=== PATIENT | female | born 1935 | race Caucasian/White ===

== ENCOUNTER 2018-01-04 14:01 | Inpatient (IN) | payer MEDICARE ==
[~2018-01-04] VITALS: Ht 170.2 cm; Wt 76.6 kg
[2018-01-04] MEDS ORDERED: ACETAMINOPHEN 325 MG TABLET PO PRN (16:30)
[2018-01-04] MEDS ORDERED: DOCUSATE 100 MG CAPSULE PO PRN (16:30)
[2018-01-04] MEDS ORDERED: BISACODYL 10 MG SUPP PR PRN (16:30)
[2018-01-04] MEDS ORDERED: ONDANSETRON ODT 4 MG PO PRN (16:30)
[2018-01-04] MEDS ORDERED: POLYETHYLENE GLYCOL 17 GM PACKET PO PRN (16:30)
[2018-01-04] MEDS ORDERED: METO-282 PO (16:55)
[2018-01-04] MEDS ORDERED: OMEP-110 PO (16:55)
[2018-01-04] MEDS ORDERED: QUET100T PO (16:55)
[2018-01-04] MEDS ORDERED: MELO15TA6 PO (16:55)
[2018-01-04] MEDS ORDERED: SIMV10TA3 PO (16:55)
[2018-01-04] MEDS ORDERED: PRED5TAB PO (16:55)
[2018-01-04] MEDS ORDERED: DIVA500T2 PO (16:55)
[2018-01-04] MEDS ORDERED: ZIPRASIDONE 20MG CAPSULE ONE (19:17)
[2018-01-04] MEDS ORDERED: SIMVASTATIN 20 MG TABLET ONE (19:17)
[2018-01-04 19:23] VITALS: BP 133/79
[2018-01-04] MEDS: DIVALPROEX 500 MG TABLET.DR PO SCH (20:00)
[2018-01-04] MEDS: SIMVASTATIN 10 MG TABLET PO SCH (20:01)
[2018-01-04] MEDS: ZIPRASIDONE 20MG CAPSULE PO SCH (20:01)
[2018-01-05 00:18] LABS: MICROSCOPIC AUTO
[2018-01-05 00:19] LABS: CULTURE INDICATED? YES
[2018-01-05 05:07] LABS: CHOL/HDL RATIO 2.2
[2018-01-05 05:08] LABS: FOLATE LEVEL 18.1 ng/mL (3.1-17.5); LDL/HDL RATIO 0.9 (0.5-3.0); T4 (THYROXINE) 8.6 mcg/dL (4.8-13.9); THYROID STIMULATING HORMONE 2.21 mIU/L (0.358-3.740)
[2018-01-05] MEDS: OMEPRAZOLE 20 MG CAPSULE.DR PO SCH (07:17)
[2018-01-05] MEDS: METOPROLOL SUCCINATE 25 MG TAB.ER.24H PO SCH (07:17)
[2018-01-05 07:30] VITALS: BP 156/69
[2018-01-05] MEDS: DIVALPROEX 500 MG TABLET.DR PO SCH ×2 (08:09→20:28)
[2018-01-05] MEDS: ZIPRASIDONE 20MG CAPSULE PO SCH ×2 (08:09→20:28)
[2018-01-05] MEDS ORDERED: ACETAMINOPHEN 325 MG TABLET PO PRN (11:30)
[2018-01-05] MEDS ORDERED: DOCUSATE 100 MG CAPSULE PO PRN (11:30)
[2018-01-05] MEDS ORDERED: BISACODYL 10 MG SUPP PR PRN (11:30)
[2018-01-05 11:50] LABS: ANION GAP 9 mmol/L (5-15); CALCIUM 8.6 mg/dL (8.5-10.1); CHLORIDE 111 mmol/L (98-107); CREATININE 0.88 mg/dL (0.55-1.02)
[2018-01-05 12:17] LABS: BASOPHILS % (AUTO) 0 % (0-1); EOSINOPHILS # (AUTO) 0.22 x10^3/uL (0-0.4); EOSINOPHILS % (AUTO) 2 % (1-7); LYMPHOCYTES # (AUTO) 1.32 x10^3/uL (1-3.4); LYMPHOCYTES % (AUTO) 13 % (22-44); MD NO; MEAN CORPUSCULAR HEMOGLOBIN 31.7 pg (27.0-34.8); MEAN PLATELET VOLUME 8.9 fL (7.4-10.4); MONOCYTES # (AUTO) 0.51 x10^3/uL (0.2-0.8); MONOCYTES % (AUTO) 5 % (2-9); NEUTROPHILS # (AUTO) 8.28 x10^3/uL (1.8-6.8); NEUTROPHILS % (AUTO) 80 % (42-75); PLATELET COUNT 155 x10^3/uL (130-400); RED BLOOD COUNT 4.65 x10^6/uL (3.82-5.3); RED CELL DISTRIBUTION WIDTH 15.3 % (9.6-15.2)
[2018-01-05 19:23] VITALS: BP 160/82
[2018-01-05] MEDS: SIMVASTATIN 10 MG TABLET PO SCH (20:28)
[2018-01-05] MEDS ORDERED: QUETIAPINE 100MG TABLET PO SCH (21:00)
[2018-01-06] MEDS: METOPROLOL SUCCINATE 25 MG TAB.ER.24H PO SCH (06:08)
[2018-01-06] MEDS: OMEPRAZOLE 20 MG CAPSULE.DR PO SCH (07:22)
[2018-01-06 07:27] VITALS: BP 122/76
[2018-01-06] MEDS: MELOXICAM 15 MG TABLET PO SCH (09:08)
[2018-01-06] MEDS: SENNA/DOCUSATE TABLET PO SCH (09:08)
[2018-01-06] MEDS: DIVALPROEX 500 MG TABLET.DR PO SCH ×2 (09:08→19:56)
[2018-01-06] MEDS: ZIPRASIDONE 20MG CAPSULE PO SCH ×3 (09:08→19:57)
[2018-01-06] MEDS ORDERED: CEPHALEXIN 250 MG CAPSULE PO SCH ×2 (10:00→12:00)
[2018-01-06] MEDS: AMOXICILLIN/CLAV 875-125MG TABLET PO SCH (19:56)
[2018-01-06] MEDS: SIMVASTATIN 10 MG TABLET PO SCH (19:57)
[2018-01-06 20:07] VITALS: BP 153/86
[2018-01-06 20:36] VITALS: BP 140/63
[2018-01-07] MEDS: METOPROLOL SUCCINATE 25 MG TAB.ER.24H PO SCH (05:25)
[2018-01-07 07:34] VITALS: BP 127/76
[2018-01-07] MEDS: OMEPRAZOLE 20 MG CAPSULE.DR PO SCH (09:11)
[2018-01-07] MEDS: ZIPRASIDONE 20MG CAPSULE PO SCH ×3 (09:12→20:20)
[2018-01-07] MEDS: MELOXICAM 15 MG TABLET PO SCH (09:12)
[2018-01-07] MEDS: SENNA/DOCUSATE TABLET PO SCH (09:13)
[2018-01-07] MEDS: DIVALPROEX 500 MG TABLET.DR PO SCH ×3 (09:13→20:21)
[2018-01-07] MEDS: AMOXICILLIN/CLAV 875-125MG TABLET PO SCH ×2 (09:13→20:20)
[2018-01-07 19:40] VITALS: BP 132/65
[2018-01-07] MEDS: SIMVASTATIN 10 MG TABLET PO SCH (20:21)
[2018-01-08] MEDS: METOPROLOL SUCCINATE 25 MG TAB.ER.24H PO SCH (05:56)
[2018-01-08 07:20] VITALS: BP 157/72
[2018-01-08] MEDS: OMEPRAZOLE 20 MG CAPSULE.DR PO SCH (07:26)
[2018-01-08] MEDS: MELOXICAM 15 MG TABLET PO SCH (08:58)
[2018-01-08] MEDS: SENNA/DOCUSATE TABLET PO SCH (08:58)
[2018-01-08] MEDS: ZIPRASIDONE 20MG CAPSULE PO SCH ×3 (08:59→20:00)
[2018-01-08] MEDS: AMOXICILLIN/CLAV 875-125MG TABLET PO SCH ×2 (08:59→20:00)
[2018-01-08] MEDS: DIVALPROEX 500 MG TABLET.DR PO SCH ×3 (08:59→20:00)
[2018-01-08 19:32] VITALS: BP 142/84
[2018-01-08] MEDS: SIMVASTATIN 10 MG TABLET PO SCH (20:00)
[2018-01-09 08:07] VITALS: BP 127/64
[2018-01-09] MEDS: AMOXICILLIN/CLAV 875-125MG TABLET PO SCH ×2 (08:27→20:15)
[2018-01-09] MEDS: ZIPRASIDONE 20MG CAPSULE PO SCH ×3 (08:27→20:15)
[2018-01-09] MEDS: DIVALPROEX 500 MG TABLET.DR PO SCH ×3 (08:27→20:15)
[2018-01-09] MEDS: MELOXICAM 15 MG TABLET PO SCH (08:27)
[2018-01-09] MEDS: OMEPRAZOLE 20 MG CAPSULE.DR PO SCH (08:27)
[2018-01-09] MEDS: METOPROLOL SUCCINATE 25 MG TAB.ER.24H PO SCH (08:29)
[2018-01-09] MEDS: SENNA/DOCUSATE TABLET PO SCH (08:29)
[2018-01-09 20:15] VITALS: BP 148/80
[2018-01-09] MEDS: SIMVASTATIN 10 MG TABLET PO SCH (20:15)
[2018-01-10 07:45] VITALS: BP 148/79
[2018-01-10] MEDS: SENNA/DOCUSATE TABLET PO SCH (08:13)
[2018-01-10] MEDS: OMEPRAZOLE 20 MG CAPSULE.DR PO SCH (08:13)
[2018-01-10] MEDS: DIVALPROEX 500 MG TABLET.DR PO SCH ×3 (08:13→19:46)
[2018-01-10] MEDS: ZIPRASIDONE 20MG CAPSULE PO SCH ×3 (08:13→19:45)
[2018-01-10] MEDS: MELOXICAM 15 MG TABLET PO SCH (08:13)
[2018-01-10] MEDS: METOPROLOL SUCCINATE 25 MG TAB.ER.24H PO SCH (08:13)
[2018-01-10] MEDS: AMOXICILLIN/CLAV 875-125MG TABLET PO SCH ×2 (08:13→19:45)
[2018-01-10 19:26] VITALS: BP 126/80
[2018-01-10] MEDS: SIMVASTATIN 10 MG TABLET PO SCH (19:46)
[2018-01-11 06:03] VITALS: BP 146/70
[2018-01-11] MEDS: METOPROLOL SUCCINATE 25 MG TAB.ER.24H PO SCH (06:07)
[2018-01-11 07:48] VITALS: BP 141/67
[2018-01-11] MEDS: OMEPRAZOLE 20 MG CAPSULE.DR PO SCH (07:55)
[2018-01-11] MEDS: AMOXICILLIN/CLAV 875-125MG TABLET PO SCH ×2 (08:54→19:48)
[2018-01-11] MEDS: MELOXICAM 15 MG TABLET PO SCH (08:54)
[2018-01-11] MEDS: DIVALPROEX 500 MG TABLET.DR PO SCH ×3 (08:54→19:49)
[2018-01-11] MEDS: ZIPRASIDONE 20MG CAPSULE PO SCH ×2 (08:54→16:08)
[2018-01-11] MEDS: SENNA/DOCUSATE TABLET PO SCH (08:55)
[2018-01-11 19:27] VITALS: BP 136/83
[2018-01-11] MEDS: SIMVASTATIN 10 MG TABLET PO SCH (19:49)
[2018-01-11] MEDS: ZIPRASIDONE 40MG CAPSULE PO SCH (19:49)
[2018-01-12] MEDS: OMEPRAZOLE 20 MG CAPSULE.DR PO SCH (07:46)
[2018-01-12] MEDS: METOPROLOL SUCCINATE 25 MG TAB.ER.24H PO SCH (07:46)
[2018-01-12 07:47] VITALS: BP 164/75
[2018-01-12] MEDS: DIVALPROEX 500 MG TABLET.DR PO SCH ×2 (08:34→16:04)
[2018-01-12] MEDS: AMOXICILLIN/CLAV 875-125MG TABLET PO SCH ×2 (08:34→20:28)
[2018-01-12] MEDS: MELOXICAM 15 MG TABLET PO SCH (08:35)
[2018-01-12] MEDS: ZIPRASIDONE 40MG CAPSULE PO SCH ×2 (08:35→20:28)
[2018-01-12] MEDS: SENNA/DOCUSATE TABLET PO SCH (08:35)
[2018-01-12 19:42] VITALS: BP 137/71
[2018-01-12] MEDS: CARBAMAZEPINE XR 200 MG TABLET PO SCH (20:27)
[2018-01-12] MEDS: SIMVASTATIN 10 MG TABLET PO SCH (20:28)
[2018-01-13 07:40] VITALS: BP 155/82
[2018-01-13] MEDS: METOPROLOL SUCCINATE 25 MG TAB.ER.24H PO SCH (07:44)
[2018-01-13] MEDS: OMEPRAZOLE 20 MG CAPSULE.DR PO SCH (07:44)
[2018-01-13] MEDS: CARBAMAZEPINE XR 200 MG TABLET PO SCH ×2 (09:00→21:08)
[2018-01-13] MEDS ORDERED: CARBAMAZEPINE 200 MG TABLET ONE (09:03)
[2018-01-13] MEDS: AMOXICILLIN/CLAV 875-125MG TABLET PO SCH ×2 (09:04→21:09)
[2018-01-13] MEDS: ZIPRASIDONE 40MG CAPSULE PO SCH ×2 (09:04→16:00)
[2018-01-13] MEDS: MELOXICAM 15 MG TABLET PO SCH (09:04)
[2018-01-13] MEDS: SENNA/DOCUSATE TABLET PO SCH (09:05)
[2018-01-13 15:30] VITALS: BP 120/59
[2018-01-13 19:29] VITALS: BP 119/76
[2018-01-13] MEDS: SIMVASTATIN 10 MG TABLET PO SCH (21:09)
[2018-01-13] MEDS: RISPERIDONE 1 MG TAB.RAPDIS PO SCH (21:09)
[2018-01-14] MEDS: METOPROLOL SUCCINATE 25 MG TAB.ER.24H PO SCH (05:53)
[2018-01-14 08:00] VITALS: BP 133/65
[2018-01-14] MEDS: AMOXICILLIN/CLAV 875-125MG TABLET PO SCH ×2 (09:34→20:15)
[2018-01-14] MEDS: SENNA/DOCUSATE TABLET PO SCH (09:34)
[2018-01-14] MEDS: CARBAMAZEPINE XR 200 MG TABLET PO SCH ×2 (09:34→20:16)
[2018-01-14] MEDS: RISPERIDONE 1 MG TAB.RAPDIS PO SCH ×2 (09:34→20:16)
[2018-01-14] MEDS: OMEPRAZOLE 20 MG CAPSULE.DR PO SCH (09:35)
[2018-01-14] MEDS: MELOXICAM 15 MG TABLET PO SCH (09:35)
[2018-01-14] MEDS: SIMVASTATIN 10 MG TABLET PO SCH (20:16)
[2018-01-14 20:30] VITALS: BP 147/73
[2018-01-14] MEDS: MINERA CRM, 60GM TP SCH ×2 (21:00→21:10)
[2018-01-15 07:57] VITALS: BP 142/82
[2018-01-15] MEDS: SENNA/DOCUSATE TABLET PO SCH (09:04)
[2018-01-15] MEDS: OMEPRAZOLE 20 MG CAPSULE.DR PO SCH (09:04)
[2018-01-15] MEDS: AMOXICILLIN/CLAV 875-125MG TABLET PO SCH ×2 (09:04→20:32)
[2018-01-15] MEDS: RISPERIDONE 1 MG TAB.RAPDIS PO SCH ×2 (09:04→20:32)
[2018-01-15] MEDS: CARBAMAZEPINE XR 200 MG TABLET PO SCH ×2 (09:04→20:32)
[2018-01-15] MEDS: METOPROLOL SUCCINATE 25 MG TAB.ER.24H PO SCH (09:15)
[2018-01-15] MEDS: MELOXICAM 15 MG TABLET PO SCH (09:15)
[2018-01-15] MEDS: MINERA CRM, 60GM TP SCH ×2 (10:22→20:32)
[2018-01-15 19:29] VITALS: BP 132/73
[2018-01-15] MEDS: SIMVASTATIN 10 MG TABLET PO SCH (20:32)
[2018-01-16 09:01] VITALS: BP 157/64
[2018-01-16] MEDS: OMEPRAZOLE 20 MG CAPSULE.DR PO SCH (09:36)
[2018-01-16] MEDS: AMOXICILLIN/CLAV 875-125MG TABLET PO SCH (09:36)
[2018-01-16] MEDS: METOPROLOL SUCCINATE 25 MG TAB.ER.24H PO SCH (09:36)
[2018-01-16] MEDS: MELOXICAM 15 MG TABLET PO SCH (09:37)
[2018-01-16] MEDS: SENNA/DOCUSATE TABLET PO SCH (09:37)
[2018-01-16] MEDS: MINERA CRM, 60GM TP SCH ×2 (09:37→19:32)
[2018-01-16] MEDS: CARBAMAZEPINE XR 200 MG TABLET PO SCH ×2 (09:37→19:32)
[2018-01-16] MEDS: RISPERIDONE 1 MG TAB.RAPDIS PO SCH ×2 (09:37→19:31)
[2018-01-16 19:18] VITALS: BP 131/63
[2018-01-16] MEDS: SIMVASTATIN 10 MG TABLET PO SCH (19:31)
[2018-01-17 08:00] VITALS: BP 134/60
[2018-01-17] MEDS: OMEPRAZOLE 20 MG CAPSULE.DR PO SCH (08:25)
[2018-01-17] MEDS: CARBAMAZEPINE XR 200 MG TABLET PO SCH ×2 (09:37→19:41)
[2018-01-17] MEDS: MELOXICAM 15 MG TABLET PO SCH (09:37)
[2018-01-17] MEDS: SENNA/DOCUSATE TABLET PO SCH (09:37)
[2018-01-17] MEDS: RISPERIDONE 1 MG TAB.RAPDIS PO SCH ×2 (09:37→19:41)
[2018-01-17] MEDS: METOPROLOL SUCCINATE 25 MG TAB.ER.24H PO SCH (09:38)
[2018-01-17] MEDS: MINERA CRM, 60GM TP SCH ×2 (09:38→19:41)
[2018-01-17 19:11] VITALS: BP 134/65
[2018-01-17] MEDS: SIMVASTATIN 10 MG TABLET PO SCH (19:41)
[2018-01-18 08:56] VITALS: BP 131/75
[2018-01-18] MEDS: CARBAMAZEPINE XR 200 MG TABLET PO SCH ×2 (08:58→20:33)
[2018-01-18] MEDS: MELOXICAM 15 MG TABLET PO SCH (08:58)
[2018-01-18] MEDS: METOPROLOL SUCCINATE 25 MG TAB.ER.24H PO SCH (08:59)
[2018-01-18] MEDS: OMEPRAZOLE 20 MG CAPSULE.DR PO SCH (08:59)
[2018-01-18] MEDS: RISPERIDONE 1 MG TAB.RAPDIS PO SCH ×2 (08:59→20:34)
[2018-01-18] MEDS: SENNA/DOCUSATE TABLET PO SCH (08:59)
[2018-01-18] MEDS: MINERA CRM, 60GM TP SCH ×2 (09:02→20:38)
[2018-01-18 20:21] VITALS: BP 126/62
[2018-01-18] MEDS: SIMVASTATIN 10 MG TABLET PO SCH (20:34)
[2018-01-19 08:10] VITALS: BP 123/74
[2018-01-19] MEDS: OMEPRAZOLE 20 MG CAPSULE.DR PO SCH (08:19)
[2018-01-19] MEDS: RISPERIDONE 1 MG TAB.RAPDIS PO SCH ×2 (08:19→19:55)
[2018-01-19] MEDS: MELOXICAM 15 MG TABLET PO SCH (08:19)
[2018-01-19] MEDS: METOPROLOL SUCCINATE 25 MG TAB.ER.24H PO SCH (08:20)
[2018-01-19] MEDS: CARBAMAZEPINE XR 200 MG TABLET PO SCH ×2 (08:20→19:55)
[2018-01-19] MEDS: SENNA/DOCUSATE TABLET PO SCH (08:20)
[2018-01-19] MEDS: MINERA CRM, 60GM TP SCH ×2 (09:37→19:55)
[2018-01-19 19:53] VITALS: BP 123/65
[2018-01-19] MEDS: SIMVASTATIN 10 MG TABLET PO SCH (19:55)
[2018-01-20 07:56] VITALS: BP 102/51
[2018-01-20] MEDS: METOPROLOL SUCCINATE 25 MG TAB.ER.24H PO SCH (08:38)
[2018-01-20] MEDS: CARBAMAZEPINE XR 200 MG TABLET PO SCH ×2 (08:38→20:09)
[2018-01-20] MEDS: SENNA/DOCUSATE TABLET PO SCH (08:38)
[2018-01-20] MEDS: MELOXICAM 15 MG TABLET PO SCH (08:38)
[2018-01-20] MEDS: OMEPRAZOLE 20 MG CAPSULE.DR PO SCH (08:39)
[2018-01-20] MEDS: RISPERIDONE 1 MG TAB.RAPDIS PO SCH ×2 (08:39→20:10)
[2018-01-20] MEDS: MINERA CRM, 60GM TP SCH ×2 (09:00→20:10)
[2018-01-20] MEDS: SIMVASTATIN 10 MG TABLET PO SCH (20:10)
[2018-01-20 20:12] VITALS: BP 131/77
[2018-01-21] VITALS (8 sets, daily range): BP systolic 94–147; BP diastolic 47–97
[2018-01-21] MEDS: OMEPRAZOLE 20 MG CAPSULE.DR PO SCH (09:11)
[2018-01-21] MEDS: MELOXICAM 15 MG TABLET PO SCH (09:12)
[2018-01-21] MEDS: RISPERIDONE 1 MG TAB.RAPDIS PO SCH ×2 (09:12→19:48)
[2018-01-21] MEDS: CARBAMAZEPINE XR 200 MG TABLET PO SCH ×2 (09:13→19:48)
[2018-01-21] MEDS: SENNA/DOCUSATE TABLET PO SCH (09:13)
[2018-01-21] MEDS: METOPROLOL SUCCINATE 25 MG TAB.ER.24H PO SCH (09:14)
[2018-01-21] MEDS: MINERA CRM, 60GM TP SCH ×2 (10:00→19:48)
[2018-01-21 13:43] LABS: BASOPHILS # (AUTO) 0.01 x10^3/uL (0-0.1); BASOPHILS % (AUTO) 0 % (0-1); EOSINOPHILS # (AUTO) 0.19 x10^3/uL (0-0.4); EOSINOPHILS % (AUTO) 3 % (1-7); LYMPHOCYTES # (AUTO) 0.61 x10^3/uL (1-3.4); LYMPHOCYTES % (AUTO) 10 % (22-44); MD NO; MEAN CORPUSCULAR HEMOGLOBIN 31.8 pg (27.0-34.8); MEAN CORPUSCULAR HGB CONC 33.4 g/dL (32.4-35.8); MEAN CORPUSCULAR VOLUME 95.2 fL (80-100); MEAN PLATELET VOLUME 9.6 fL (7.4-10.4); MONOCYTES # (AUTO) 0.43 x10^3/uL (0.2-0.8); MONOCYTES % (AUTO) 7 % (2-9); NEUTROPHILS % (AUTO) 80 % (42-75); PLATELET COUNT 149 x10^3/uL (130-400); RED BLOOD COUNT 4.14 x10^6/uL (3.82-5.3); RED CELL DISTRIBUTION WIDTH 15.3 % (9.6-15.2)
[2018-01-21 13:49] LABS: ALANINE AMINOTRANSFERASE 21 U/L (12-78); ANION GAP 5 mmol/L (5-15); CALCIUM 8.2 mg/dL (8.5-10.1); CHLORIDE 103 mmol/L (98-107); CREATININE 0.74 mg/dL (0.55-1.02)
[2018-01-21 13:51] LABS: ALKALINE PHOSPHATASE 51 U/L (45-117); BILIRUBIN,TOTAL 0.3 mg/dL (0.2-1.0); TOTAL PROTEIN 6.5 g/dL (6.4-8.2)
[2018-01-21 13:54] LABS: TROPONIN I < 0.015 ng/mL (0.000-0.045)
[2018-01-21] MEDS: SIMVASTATIN 10 MG TABLET PO SCH (19:48)
[2018-01-21 20:50] LABS: CULTURE INDICATED? YES; MICROSCOPIC INDICATED
[2018-01-22] MEDS: OMEPRAZOLE 20 MG CAPSULE.DR PO SCH (07:45)
[2018-01-22 07:49] VITALS: BP 156/63
[2018-01-22] MEDS: MINERA CRM, 60GM TP SCH ×2 (09:00→20:13)
[2018-01-22] MEDS: SENNA/DOCUSATE TABLET PO SCH (09:15)
[2018-01-22] MEDS: CARBAMAZEPINE XR 200 MG TABLET PO SCH ×2 (09:15→20:08)
[2018-01-22] MEDS: CIPROFLOXACIN 250 MG TABLET PO SCH ×2 (09:16→20:08)
[2018-01-22] MEDS: RISPERIDONE 1 MG TAB.RAPDIS PO SCH ×2 (09:16→20:08)
[2018-01-22] MEDS: MELOXICAM 15 MG TABLET PO SCH (09:16)
[2018-01-22 19:33] VITALS: BP 132/77
[2018-01-22] MEDS: SIMVASTATIN 10 MG TABLET PO SCH (20:08)
[2018-01-23 07:11] VITALS: BP 148/68
[2018-01-23] MEDS: OMEPRAZOLE 20 MG CAPSULE.DR PO SCH (07:16)
[2018-01-23] MEDS: CIPROFLOXACIN 250 MG TABLET PO SCH (08:40)
[2018-01-23] MEDS: MELOXICAM 15 MG TABLET PO SCH (08:40)
[2018-01-23] MEDS: RISPERIDONE 1 MG TAB.RAPDIS PO SCH ×2 (08:41→20:15)
[2018-01-23] MEDS: CARBAMAZEPINE XR 200 MG TABLET PO SCH ×2 (08:41→20:15)
[2018-01-23] MEDS: SENNA/DOCUSATE TABLET PO SCH (08:41)
[2018-01-23] MEDS: MINERA CRM, 60GM TP SCH ×2 (09:17→20:22)
[2018-01-23] MEDS: METOPROLOL SUCCINATE 25 MG TAB.ER.24H PO SCH (10:47)
[2018-01-23 20:01] VITALS: BP 126/73
[2018-01-23] MEDS: SIMVASTATIN 10 MG TABLET PO SCH (20:15)
[2018-01-24 07:44] VITALS: BP 146/56
[2018-01-24] MEDS: SENNA/DOCUSATE TABLET PO SCH (09:03)
[2018-01-24] MEDS: OMEPRAZOLE 20 MG CAPSULE.DR PO SCH (09:04)
[2018-01-24] MEDS: MELOXICAM 15 MG TABLET PO SCH (09:04)
[2018-01-24] MEDS: RISPERIDONE 1 MG TAB.RAPDIS PO SCH ×2 (09:04→20:43)
[2018-01-24] MEDS: CARBAMAZEPINE XR 200 MG TABLET PO SCH ×2 (09:04→20:43)
[2018-01-24] MEDS: METOPROLOL SUCCINATE 25 MG TAB.ER.24H PO SCH (09:04)
[2018-01-24] MEDS: MINERA CRM, 60GM TP SCH ×2 (10:06→20:43)
[2018-01-24 20:37] VITALS: BP 150/63
[2018-01-24] MEDS: SIMVASTATIN 10 MG TABLET PO SCH (20:43)
[2018-01-25 07:50] VITALS: BP 126/56
[2018-01-25] MEDS: CARBAMAZEPINE XR 200 MG TABLET PO SCH ×2 (08:41→20:22)
[2018-01-25] MEDS: MELOXICAM 15 MG TABLET PO SCH (08:41)
[2018-01-25] MEDS: SENNA/DOCUSATE TABLET PO SCH (08:41)
[2018-01-25] MEDS: OMEPRAZOLE 20 MG CAPSULE.DR PO SCH (08:41)
[2018-01-25] MEDS: METOPROLOL SUCCINATE 25 MG TAB.ER.24H PO SCH (08:41)
[2018-01-25] MEDS: RISPERIDONE 1 MG TAB.RAPDIS PO SCH ×2 (08:42→20:23)
[2018-01-25] MEDS: MINERA CRM, 60GM TP SCH ×2 (10:00→20:23)
[2018-01-25] MEDS ORDERED: CARB200T2 PO (18:12)
[2018-01-25] MEDS ORDERED: OMEP-110 PO (18:12)
[2018-01-25] MEDS ORDERED: METO25TA91 PO (18:12)
[2018-01-25] MEDS ORDERED: PRED5TAB PO (18:12)
[2018-01-25] MEDS ORDERED: MINE454C2 TP (18:12)
[2018-01-25] MEDS ORDERED: SIMV10TA3 PO (18:12)
[2018-01-25] MEDS ORDERED: POLY17PO5 PO (18:12)
[2018-01-25] MEDS ORDERED: SENN1TAB8 PO (18:12)
[2018-01-25] MEDS ORDERED: RISP-2 PO (18:12)
[2018-01-25 19:20] VITALS: BP 147/71
[2018-01-25] MEDS: SIMVASTATIN 10 MG TABLET PO SCH (20:23)
[2018-01-26 07:56] VITALS: BP 148/70
[2018-01-26] MEDS: METOPROLOL SUCCINATE 25 MG TAB.ER.24H PO SCH (08:23)
[2018-01-26] MEDS: SENNA/DOCUSATE TABLET PO SCH (08:23)
[2018-01-26] MEDS: OMEPRAZOLE 20 MG CAPSULE.DR PO SCH (08:23)
[2018-01-26] MEDS: CARBAMAZEPINE XR 200 MG TABLET PO SCH (08:23)
[2018-01-26] MEDS: RISPERIDONE 1 MG TAB.RAPDIS PO SCH (08:23)
[2018-01-26] MEDS: MELOXICAM 15 MG TABLET PO SCH (08:23)
[2018-01-26] MEDS: MINERA CRM, 60GM TP SCH (09:00)
== END 2018-01-26 10:30 | disposition home or self-care (01) | DRG 57 ==
LOC: 3E 16:05
PROVIDERS: ADMIT Psychiatry & Neurology Psychosomatic Medicine; ATTEND Internal Medicine
DX: G30.9 Alzheimer's disease, unspecified (principal); F23 Brief psychotic disorder; F02.81 Dementia in other diseases classified elsewhere, unspecified severity, with behavioral disturbance; N39.0 Urinary tract infection, site not specified; R45.1 Restlessness and agitation; E78.5 Hyperlipidemia, unspecified; F25.0 Schizoaffective disorder, bipolar type; I10 Essential (primary) hypertension; K21.9 Gastro-esophageal reflux disease without esophagitis; K59.00 Constipation, unspecified; L03.012 Cellulitis of left finger; M06.9 Rheumatoid arthritis, unspecified; Z66 Do not resuscitate; Z79.899 Other long term (current) drug therapy; Z88.6 Allergy status to analgesic agent; Z88.5 Allergy status to narcotic agent
CPT/HCPCS: 36415; 70450; 80048; 80053; 80061; 80156; 80164; 81001; 82140; 82607; 82746; 84436; 84443; 84484; 85025; 85651; 86592; 87086; 87147; 93005; 92523-GN; G0515-GN; J7512

== ENCOUNTER 2018-01-04 15:34 | Emergency (ER) | payer MEDICARE ==
[~2018-01-04] VITALS: Ht 170.2 cm; Wt 78.6 kg
[2018-01-04 15:37] VITALS: BP 129/60
[2018-01-04 16:06] LABS: BASOPHILS # (AUTO) 0.03 x10^3/uL (0-0.1); BASOPHILS % (AUTO) 0 % (0-1); EOSINOPHILS # (AUTO) 0.19 x10^3/uL (0-0.4); EOSINOPHILS % (AUTO) 3 % (1-7); LYMPHOCYTES # (AUTO) 1.08 x10^3/uL (1-3.4); LYMPHOCYTES % (AUTO) 17 % (22-44); MD NO; MEAN CORPUSCULAR HEMOGLOBIN 31.9 pg (27.0-34.8); MEAN CORPUSCULAR HGB CONC 33.6 g/dL (32.4-35.8); MEAN PLATELET VOLUME 9.1 fL (7.4-10.4); MONOCYTES # (AUTO) 0.41 x10^3/uL (0.2-0.8); MONOCYTES % (AUTO) 6 % (2-9); NEUTROPHILS # (AUTO) 4.85 x10^3/uL (1.8-6.8); NEUTROPHILS % (AUTO) 74 % (42-75); PLATELET COUNT 143 x10^3/uL (130-400); RED BLOOD COUNT 4.36 x10^6/uL (3.82-5.3); RED CELL DISTRIBUTION WIDTH 15.3 % (9.6-15.2)
[2018-01-04 16:09] LABS: ALANINE AMINOTRANSFERASE 16 U/L (12-78); ALBUMIN 3.1 g/dL (3.4-5.0); ANION GAP 8 mmol/L (5-15); CALCIUM 8.7 mg/dL (8.5-10.1); CHLORIDE 106 mmol/L (98-107); CREATININE 0.96 mg/dL (0.55-1.02)
[2018-01-04 16:12] LABS: ALKALINE PHOSPHATASE 52 U/L (45-117); BILIRUBIN,TOTAL 0.3 mg/dL (0.2-1.0); TOTAL PROTEIN 6.9 g/dL (6.4-8.2)
[2018-01-04] MEDS ORDERED: MELO15TA6 PO (16:55)
[2018-01-04] MEDS ORDERED: QUET100T PO (16:55)
[2018-01-04] MEDS ORDERED: METO-282 PO (16:55)
[2018-01-04] MEDS ORDERED: SIMV10TA3 PO (16:55)
[2018-01-04] MEDS ORDERED: PRED5TAB PO (16:55)
[2018-01-04] MEDS ORDERED: DIVA500T2 PO (16:55)
[2018-01-04] MEDS ORDERED: OMEP-110 PO (16:55)
== END 2018-01-04 15:55 ==
LOC: ED 15:50
DX: R41.82 Altered mental status, unspecified (principal); L53.9 Erythematous condition, unspecified
CPT/HCPCS: 36415; 71045; 80053; 85025; 99285